=== PATIENT | female | born 1955 | race Two or more races ===

== ENCOUNTER 2020-05-12 21:38 | Inpatient (IN) | payer MEDICARE, MEDICAID ==
[~2020-05-12] VITALS: Ht 172.7 cm; Wt 63.5 kg
--- NOTE | 2020-05-12 21:53 | Emergency Room Report ---
History of Present Illness General Chief Complaint: palpitations Present Illness HPI Patient is a 65-year-old female presents for increased palpitations and chest discomfort. Onset approximately 30 minutes prior to arrival. Intermittent episodes in the past. Patient had recently had Pfizer coronavirus vaccine #2 approximately 1 week ago. Denies any exacerbating or alleviating factors. Reports having intermittent episodes similarly in the past. Had not been having any fever or cough. [place] that her heart was beating somewhat fast. Had taken baby aspirin approximately 2 hours ago. Allergies: Coded Allergies: No Known Allergies (Unverified , 05/12/20) Patient History Past Medical History: see triage record Reviewed Nursing Documentation: PMH: Agreed; PSxH: Agreed Review of Systems All Other Systems: negative except mentioned in HPI Physical Exam Sp02 EP Interpretation: reviewed, normal General Appearance: normal inspection, well appearing, no apparent distress, alert, GCS 15 Head: atraumatic ENT: normal ENT inspection, hearing grossly normal, normal voice Neck: normal inspection, full range of motion, supple, no bony tend Respiratory: normal inspection, lungs clear, normal breath sounds, no respiratory distress, no retraction, no wheezing Cardiovascular #1: no edema, tachycardia, irregularly irregular Gastrointestinal: normal inspection, normal bowel sounds, non tender, soft, no guarding, no hernia Genitourinary: no CVA tenderness Musculoskeletal: normal inspection, back normal, normal range of motion Neurologic: alert, motor strength/tone normal, 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 Total critical care time excluding procedures approximately 45 minutes. Medical Decision Making Diagnostic Impression: Primary Impression: Atrial fibrillation with rapid ventricular response ER Course Patient presents for increased chest discomfort and palpitations. Allergic reaction, myocardial infarction, cardiac arrhythmia among others. Because of complexity of patient's case laboratory tests and imaging studies were ordered.Initial EKG interpreted by me showed atrial fibrillation with rapid ventricular response rate of 143. Patient had taken baby aspirin prior to arrival 2 hours ago. Patient was given additional dose of aspirin as well as medications to assist with rate control. She was given digoxin as well as Cardizem with improvement in heart rate. Patient was also given oral potassium due to hypokalemia. Thyroid function tests were normal. Troponin was negative. Patient was reassessed and had no complaints of any chest discomfort or palpitations after rate control. Patient subsequently converted to sinus r hythm. Patient had intermittent episodes where she would begin having atrial fibrillation episodes again. Patient's case was discussed with Dr. Johnson who agreed to accept the patient for admission Labs Test 05/12/20 22:00 05/12/20 22:10 White Blood Count 6.7 K/UL (4.8-10.8) Red Blood Count 4.47 M/UL (4.20-5.40) Hemoglobin 13.6 G/DL (12.0-16.0) Hematocrit 40.5 % (37.0-47.0) Mean Corpuscular Volume 91 FL (80-99) Mean Corpuscular Hemoglobin 30.4 PG (27.0-31.0) Mean Corpuscular Hemoglobin Concent 33.5 G/DL (32.0-36.0) Red Cell Distribution Width 13.8 % (11.6-14.8) Platelet Count 175 K/UL (150-450) Mean Platelet Volume 7.2 FL (6.5-10.1) Neutrophils (%) (Auto) 45.9 % (45.0-75.0) Lymphocytes (%) (Auto) 47.6 % (20.0-45.0) Monocytes (%) (Auto) 4.6 % (1.0-10.0) Eosinophils (%) (Auto) 0.8 % (0.0-3.0) Basophils (%) (Auto) 1.1 % (0.0-2.0) Prothrombin Time 10.6 SEC (9.30-11.50) Prothromb Time International Ratio 1.0 (0.9-1.1) Activated Partial Thromboplast Time 24 SEC (23-33) D-Dimer 0.19 mg/L FEU (0.00-0.49) Sodium Level 145 MMOL/L (136-145) Potassium Level 3.0 MMOL/L (3.5-5.1) Chloride Level 106 MMOL/L (98-107) Carbon Dioxide Level 29 MMOL/L (21-32) Anion Gap 11 mmol/L (5-15) Blood Urea Nitrogen 15 mg/dL (7-18) Creatinine 0.8 MG/DL (0.55-1.30) Estimat Glomerular Filtration Rate > 60 mL/min (>60) Glucose Level 181 MG/DL (74-106) Calcium Level 9.6 MG/DL (8.5-10.1) Total Bilirubin 0.9 MG/DL (0.2-1.0) Aspartate Amino Transf (AST/SGOT) 21 U/L (15-37) Alanine Aminotransferase (ALT/SGPT) 23 U/L (12-78) Alkaline Phosphatase 66 U/L (46-116) Troponin I 0.000 ng/mL (0.000-0.056) Pro-B-Type Natriuretic Peptide 92 pg/mL (0-125) Total Protein 8.1 G/DL (6.4-8.2) Albumin 4.6 G/DL (3.4-5.0) Globulin 3.5 g/dL Albumin/Globulin Ratio 1.3 (1.0-2.7) Thyroid Stimulating Hormone (TSH) 2.625 uiU/mL (0.358-3.740) Urine Color Pale yellow Urine Appearance Clear Urine pH 7 (4.5-8.0) Urine Specific [place] 1.010 (1.005-1.035) Urine Protein Negative (NEGATIVE) Urine Glucose (UA) Negative (NEGATIVE) Urine Ketones Negative (NEGATIVE) Urine Blood 2+ (NEGATIVE) Urine Nitrite Negative (NEGATIVE) Urine Bilirubin Negative (NEGATIVE) Urine Urobilinogen Normal MG/DL (0.0-1.0) Urine Leukocyte Esterase Negative (NEGATIVE) Urine RBC 0-2 /HPF (0 - 2) Urine WBC 0 /HPF (0 - 2) Urine Squamous Epithelial Cells Few /LPF (NONE/OCC) Urine Bacteria None /HPF (NONE) EKG Diagnostic Results Rate: tachycardiac Rhythm: other - Atrial fibrillation ST Segments: no acute changes ASA given to the pt in ED: Yes Status: improved Disposition: ADMITTED INPATIENT Condition: Improved Haile Kathleen MD May 12, 2020 21:53
[2020-05-12] MEDS ORDERED: dilTIAZem HCl 25mg/5ml Inj IVP ONE (22:00)
[2020-05-12] MEDS ORDERED: Aspirin Baby 81mg ORAL ONE (22:00)
[2020-05-12] MEDS ORDERED: Digoxin 0.5mg/2ml Inj IVP ONE (22:00)
--- NOTE | 2020-05-12 22:00 | NUR ---
Pte came to ER ambulatory c/o chest pain , SOB and palpitations since this morning. New orders received from EDP and carried out. All procedures were explain to the patient . Patient verbalized understanding. Safety and comfort measures taken: bed set in low position, frequent rounds, call light within reach. Will continue monitoring the patient during the sift.
[2020-05-12 22:11] LABS: BASOPHILS % (AUTO) 1.1 % (0.0-2.0); EOSINOPHILS % (AUTO) 0.8 % (0.0-3.0); HEMATOCRIT 40.5 % (37.0-47.0); HEMOGLOBIN 13.6 G/DL (12.0-16.0); LYMPHOCYTES % (AUTO) 47.6 % (20.0-45.0); MEAN CORPUSCULAR VOLUME 91 FL (80-99); MONOCYTES % (AUTO) 4.6 % (1.0-10.0); NEUTROPHILS % (AUTO) 45.9 % (45.0-75.0); PLATELET COUNT 175 K/UL (150-450); RED BLOOD COUNT 4.47 M/UL (4.20-5.40); RED CELL DISTRIBUTION WIDTH 13.8 % (11.6-14.8); WHITE BLOOD COUNT 6.7 K/UL (4.8-10.8)
[2020-05-12 22:24] LABS: ANION GAP 11 mmol/L (5-15); BLOOD UREA NITROGEN 15 mg/dL (7-18); CALCIUM 9.6 MG/DL (8.5-10.1); CARBON DIOXIDE 29 MMOL/L (21-32); CHLORIDE 106 MMOL/L (98-107); CREATININE 0.8 MG/DL (0.55-1.30); SODIUM 145 MMOL/L (136-145)
[2020-05-12 22:29] LABS: APPEARANCE,URINE CLEAR; BILIRUBIN, URINE NEGATIVE (NEGATIVE); COLOR,URINE PALE YELLOW; GLUCOSE, URINE (UA) NEGATIVE (NEGATIVE); KETONES,URINE NEGATIVE (NEGATIVE); LEUKOCYTE ESTERASE ,URINE NEGATIVE (NEGATIVE); NITRITE,URINE NEGATIVE (NEGATIVE); PH,URINE 7 (4.5-8.0); PROTEIN,URINE NEGATIVE (NEGATIVE); UROBILINOGEN,URINE NORMAL MG/DL (0.0-1.0)
[2020-05-12 22:37] LABS: ALANINE AMINOTRANSFERASE 23 U/L (12-78); ALBUMIN 4.6 G/DL (3.4-5.0); ALBUMIN/GLOBULIN RATIO 1.3 (1.0-2.7); ALKALINE PHOSPHATASE 66 U/L (46-116); ASPARTATE AMINO TRANSFERASE 21 U/L (15-37); BILIRUBIN,TOTAL 0.9 MG/DL (0.2-1.0)
[2020-05-12 22:42] VITALS: BP 143/88
--- NOTE | 2020-05-12 22:44 | Diagnostic Imaging Report ---
EXAM: XR Chest, 1 View CLINICAL HISTORY: CP TECHNIQUE: Frontal view of the chest. COMPARISON: No previous study. FINDINGS: Lungs: The lungs are well aerated. Patchy airspace disease at the lung bases raising concern for atypical pneumonias. Pleural space: Unremarkable. No pneumothorax. Heart: Mild cardiomegaly. Mediastinum: Unremarkable. Bones/joints: Osteopenia. IMPRESSION: 1. Patchy airspace disease at lung bases raising concern for possible atypical pneumonia. 2. Cardiomegaly. 3. No pleural effusions. 4. Osteopenia.
[2020-05-12] MEDS ORDERED: Milk of Magnesia 30ml Ud ORAL PRN (23:00)
[2020-05-12] MEDS ORDERED: dilTIAZem HCl 25mg/5ml Inj IVP PRN (23:00)
[2020-05-12] MEDS ORDERED: Acetaminophen 500mg (ES) tab ORAL PRN (23:00)
[2020-05-13] VITALS (7 sets, daily range): BP systolic 122–142; BP diastolic 76–93
[2020-05-13] MEDS ORDERED: Azithromycin 250mg tab ORAL ONE
[2020-05-13] MEDS ORDERED: cefTRIAXone 1 GM in D5W 55 ML IVPB SCH ×2
[2020-05-13] MEDS: dilTIAZem HCl 30mg tab ORAL SCH ×4 (00:51→18:12)
--- NOTE | 2020-05-13 00:55 | NUR ---
Pte was admitted to the floor CCU unit report given to Jody NARANJO . All belongs were packaged and sent them with the pte. Patient left ER in stable condition accompained of oscar NARANJO.
--- NOTE | 2020-05-13 01:00 | NUR ---
NURSE NOTES: Report received from JOSE A Baeza. Pt MARCO parham direct to SDU room 239-2. Upon assessment pt is A/Ox3 - not oriented to date. PERRLA. Vitals WNL. Saturating 98% on room air. 5-lead EKG shows NSR. s1s2 heart sounds auscultated. Rhonchi heard on bilateral lobes. Active bowel sounds auscultated on RLQ of abdomen. Bed kept in lowest and locked position. Side rails up x2. Call light within reach. Will monitor.
--- NOTE | 2020-05-13 01:29 | NUR ---
NURSE NOTES: Pt observed ambulating to restroom. Stable gait observed. Observed with dark purple bruise on upper left side of back. Will have disease education specialist d/w pt in AM in regards to bruising since preferred language is Arabic. No distress noted.
--- NOTE | 2020-05-13 04:00 | NUR ---
NURSE NOTES: EKG taken as ordered which shows NSR. No cardiopulmonary distress noted. Saturating 99% on room air.
[2020-05-13 05:25] LABS: ANION GAP 7 mmol/L (5-15); BLOOD UREA NITROGEN 14 mg/dL (7-18); CARBON DIOXIDE 30 MMOL/L (21-32); CHLORIDE 109 MMOL/L (98-107); CREATININE 0.6 MG/DL (0.55-1.30); POTASSIUM 3.6 MMOL/L (3.5-5.1); SODIUM 146 MMOL/L (136-145)
[2020-05-13 05:37] LABS: ALANINE AMINOTRANSFERASE 25 U/L (12-78); ALBUMIN 4.1 G/DL (3.4-5.0); ALBUMIN/GLOBULIN RATIO 1.3 (1.0-2.7); ALKALINE PHOSPHATASE 59 U/L (46-116); ASPARTATE AMINO TRANSFERASE 19 U/L (15-37); BILIRUBIN,TOTAL 0.7 MG/DL (0.2-1.0)
--- NOTE | 2020-05-13 06:47 | NUR ---
NURSE HAND-OFF: Important Events on Shift: No change Patient Status: Stable Diet: Cardiac Pending Orders: Pending Results/Labs: Pending MD notification: Latest Vital Signs: Temperature 97.8 , Pulse 73 , B/P 124 /76 , Respiratory Rate 16 , O2 SAT 98 , Nasal Cannula, O2 Flow Rate . Vital Sign Comment: WNL Latest Collazo Fall Score: 20 Fall Risk: Low Risk Safety Measures: Call light Within Reach, Bed Alarm Zone 1, Side Rails Side Rails x2, Bed position Low and Locked. Fall Precautions: Report given to JOSE A Collado.
--- NOTE | 2020-05-13 07:00 | NUR ---
NURSE NOTES: Received report from JOSE A Haile. pt in bed awake and orientedx4, danish speaking. IV site in left AC 20G SL and in RAC 20G running NS @75ml/hr patent and intact. Call light within easy reach. Side railsx 2 up for safety. Sinus rhythm on director strategy. Bed in lowest position. Will continue plan of care.
--- NOTE | 2020-05-13 07:25 | NUR ---
NURSE NOTES: Dr. Johnson present at the bedside. May d/c Eliquis if pt stays SR and stable. Will continue plan of care.
--- NOTE | 2020-05-13 08:14 | History and Physical Report ---
DATE OF ADMISSION: 05/12/2020 CHIEF COMPLAINT: Palpitations. HISTORY OF PRESENT ILLNESS: Patient is a 65-year-old female. She has no past medical history presented with complaints of several days of palpitations. On evaluation in the emergency room, she was in AFib with rapid ventricular response. She received a dose of Cardizem with some improvement. She is now admitted to a monitored bed for further evaluation. She denies any excess caffeine use. Denies any drinking. No chest pain. No shortness of breath or cough. She received her second dose of her COVID vaccine on 04/27/2020. PAST MEDICAL HISTORY: None. PAST SURGICAL HISTORY: None. CURRENT MEDICATIONS: None. FAMILY HISTORY: None. SOCIAL HISTORY: Negative for tobacco, ethanol, or drugs. REVIEW OF SYSTEMS: GENERAL: No fevers or chills. HEENT: No headaches or visual changes. CARDIOPULMONARY: No chest pain or shortness of breath. Positive palpitations. GASTROINTESTINAL: No nausea or vomiting. GENITOURINARY: No urgency or frequency. MUSCULOSKELETAL: No joint pain or swelling. NEUROLOGIC: No evidence of seizures. PHYSICAL EXAMINATION: VITAL SIGNS: Temperature 98.2, pulse 70, respirations 16, blood pressure 122/76. GENERAL: Patient is well developed, in no apparent distress. HEART: Regular rate and rhythm. LUNGS: Clear. ABDOMEN: Soft, nontender, nondistended. EXTREMITIES: Without clubbing, cyanosis, or edema. LABORATORY AND DIAGNOSTIC DATA: EKG showed AFib with RVR. White count was 6, hemoglobin 13, platelets 175. Sodium 145, potassium is 3. Troponin was 0.0 and then 0.006. TSH was normal. UA was clear. Chest x-ray showed patchy airspace disease at the bases, possible pneumonia. PLAN: IV antibiotics. Check for COVID PCR. ID, Cardiology evaluations to be obtained. Patient will be started on Eliquis. We will check an echo. Further plan of care will be determined after discussion with consulting physicians. William Dumas JOB#: [id number] CC:
[2020-05-13] MEDS ORDERED: Vitamin D 400 units TAB ORAL SCH (09:00)
[2020-05-13] MEDS ORDERED: Ascorbic Acid 500mg tab ORAL SCH (09:00)
--- NOTE | 2020-05-13 09:00 | NUR ---
NURSE NOTES: Pt went to CT scan via wheelchair with monitor and RN's supervision.
--- NOTE | 2020-05-13 09:20 | NUR ---
NURSE NOTES: Pt came back form CT scan. Pt remains stable.
[2020-05-13] MEDS: Eliquis 2.5mg tablet ORAL SCH ×2 (09:23→18:13)
--- NOTE | 2020-05-13 10:20 | NUR ---
NURSE NOTES: Covid 19 PCR swab done and sent to the lab
--- NOTE | 2020-05-13 14:20 | NUR ---
INSURANCE [employer]INICALS FAXED TO [facility] #[phone] fax# [phone]
--- NOTE | 2020-05-13 14:30 | NUR ---
NURSE NOTES: Pt asked to discharge home. Dr. Johnson paged and no reply received
--- NOTE | 2020-05-13 15:53 | Diagnostic Imaging Report ---
Indication: Chest pain, shortness of breath Technique: Noncontrast CT of the chest utilizing automated exposure control. Axial, sagittal and coronal reformats presented. CT dose: Total DLP 138.8 mGycm; CTDI vol 3.4 mGy Comparison: No prior CT available for comparison. Correlation made to concurrent chest radiograph Findings: Please note that evaluation of the vasculature and mediastinal structures is limited without intravenous contrast. Within these limitations the following observations are made: There is focal bronchiectasis and adjacent airspace opacities in the anterior middle lobe and lingula. Additional foci of bronchiectasis with bronchial wall thickening noted in the superior middle lobe. There is some clustered solid nodules in this region as well (for example axial image #36). Some subpleural nodules are noted bilaterally, largest in the periphery of the left lower lobe measuring approximately 7 mm diameter (axial image #33) is no pleural effusion or pneumothorax. There is somewhat nodular scarring in the right apex (axial image #12). Heart is within normal limits. No pericardial effusion. There is enlarged mediastinal and left axillary lymphadenopathy. The thoracic aorta is normal in caliber with mild atherosclerotic calcification. Main pulmonary artery appears normal in caliber. Imaged portions of abdominal aorta normal in caliber. Bones are demineralized. There is likely interbody hemangioma in T5. No acute fractures identified. There is a 13 mm nodule in the right lobe of the thyroid. IMPRESSION: Limited exam without intravenous contrast. Within these limitations: * Bronchiectasis and airspace opacities noted within the anterior mid lobe and lingula. Findings are likely sequela of infection, for example atypical mycobacterial infection. Additional etiologies not excluded. Correlation with clinical history recommended. Comparison with the prior exam would be helpful. * Clustered subcentimeter nodules in the superior middle lobe as well as scattered subpleural nodules. These may be postinfectious or postinflammatory in etiology. Neoplasm/malignancy not excluded and short-term interval follow-up (less than 3 months) recommended to assess stability. * Focus of likely nodular scarring in the right apex. Attention on short-term interval follow-up recommended. * 13 mm low-attenuation nodule in the right lobe of the thyroid. Follow-up thyroid ultrasound recommended. The CT scanner at [facility] is accredited by the [employer] and the scans are performed using protocols designed to limit radiation exposure to as low as reasonably achievable to attain images of sufficient resolution adequate for diagnostic evaluation.
--- NOTE | 2020-05-13 19:25 | NUR ---
NURSE HAND-OFF REPORT: Important Events on Shift: wants to discharge home Patient Status: stable Diet: cardiac Pending Orders: covid 19 PCR Pending Results/Labs:covid 19 PCR Pending MD notification: Chest CT Latest Vital Signs: Temperature 97.5 , Pulse 78 , B/P 141 /87 , Respiratory Rate 16 , O2 SAT 98 , Nasal Cannula, O2 Flow Rate . Vital Sign Comment: stable EKG Rhythm: Sinus Rhythm Rhythm change?: N MD Notified?: N - MD Response: n/a Latest Collazo Fall Score: 20 Fall Risk: Low Risk Safety Measures: Call light Within Reach, Bed Alarm Zone 1, Side Rails Side Rails x2, Bed position Low and Locked. Fall Precautions: Report given to JOSE A Levy.
--- NOTE | 2020-05-13 19:29 | Consultation ---
DATE OF CONSULTATION: 05/13/2020 PULMONARY CONSULTATION CONSULTING PHYSICIAN: Carroll Augustin MD REASON FOR CONSULTATION: Bronchiectasis/pneumonia. HISTORY OF PRESENT ILLNESS: This is a 65-year-old female, brought in for evaluation. The patient with no prior past medical history. The patient with complaints of palpitation. In the emergency room, patient was noted to have atrial fibrillation with rapid ventricular response. Also CT of the chest was done showing significant bronchiectatic changes with possible pneumonia. Patient has no shortness of breath or cough at this time. The patient has received the COVID vaccine. No fever or chills reported. No hemoptysis at present. PAST MEDICAL HISTORY: Negative. PAST SURGICAL HISTORY: Negative. MEDICATIONS: None. FAMILY HISTORY: Noncontributory. SOCIAL HISTORY: Nonsmoker and nondrinker. Patient is of descent. REVIEW OF SYSTEMS: All 10 points reviewed and otherwise negative. PHYSICAL EXAMINATION: GENERAL: A well-developed female, in no apparent distress. LUNGS: Notable for moderate breath sounds. Some crackles noted at the bases. CARDIAC: S1, S2. Regular rate and rhythm. ABDOMEN: Soft, nontender. EXTREMITIES: No cyanosis, clubbing, or edema. NEUROLOGIC: Grossly nonfocal. VITAL SIGNS: The patient's most recent vitals, blood pressure normal 122/76, pulse rate 70, respiratory rate 16, temperature 98.2. LABORATORY DATA: Reviewed. EKG with atrial fibrillation with RVR. Sodium 145. Troponin negative. TSH normal. Chest x-ray with patchy airspace disease. CT chest with bronchiectatic changes. IMPRESSION: 1. Atrial fibrillation, paroxysmal. 2. Bronchiectasis with airspace opacities, possibly post pneumonic. 3. Subcentimeter nodules superior and middle lobe and noted thyroid nodule. RECOMMENDATION: Empiric antibiotics. ID to see. We will need to check followup of CAT scan, especially with noted nodules. Anticoagulation. Heart rate control. Cardiology to see. Monitor clinically. Obtain sputum and await COVID results. Patient's findings are likely mostly chronic with acute superimposed pneumonia. Carroll Augustin M.D. DR: SALOME JOB#: [id number] CC: LEEANN
--- NOTE | 2020-05-13 19:30 | NUR ---
NURSE NOTES: Dr. Kothari paged for the time of arrival to see the patient, no respond at this time. Left a message
--- NOTE | 2020-05-13 19:46 | NUR ---
NURSE NOTES: Received report from Tobias Celeste Rn. Pt is awake, A/Ox4, French speaking. No signs of distress noted. on RA spo2 98%, respirations even and unlabored. lunchroom monitor shows SR. Pt is ambulatory. R AC 18g is intact, running NS 75cc/hr. On covid precautions due to PUI status. Skin is intact. HOB elevated, call light within reach, bed alarmed, locked, and in lowest position. Will continue plan of care. Will continue to monitor.
--- NOTE | 2020-05-13 19:50 | NUR ---
NURSE NOTES: Called Dr. Johnson regarding pt's pending AMA status due to inability to see Dr. Kothari. Was told that Dr. kothari would be in the unit, but unsure about what time. This information was relayed to the pt and pt was educated on the dangers of AMA. Rn spoke with the daughter and relayed the information to her. Daughter stated that she understood everything but still wanted her mother to AMA.
--- NOTE | 2020-05-13 20:10 | NUR ---
NURSE NOTES: Unable to contact Dr. Kothari. Pt stated in mohawk that if she does not see Dr. kothari by 10pm, she will be leaving AMA. RN notified pt that Dr. Kothari usually comes later in the evening, and to be patient. The patient, although calm, states that she cannot wait longer than 10pm.
--- NOTE | 2020-05-13 20:30 | NUR ---
NURSE NOTES: Pt on facetime with daughter and daughter and pt agreed that AMA without waiting for 10pm. RN attempted to convince pt to stay again stating that Dr. Kothari will be in tonight and that leaving without clearance could be dangerous. Pt still stated that she will leave and will sign the paper. Daughter will be picking her up.
--- NOTE | 2020-05-13 20:56 | NUR ---
NURSE NOTES: IV, telemetry box,a nd wrist band removed. Pt able to dress herself. Inventory list signed by pt, ama form signed by pt. Daughter arrived at 2044 to the entrance of the hospital. RN wheeled pt down and pt was able to stand up and get in the care.
[2020-05-13] MEDS ORDERED: Azithromycin 250mg tab ORAL SCH (21:00)
--- NOTE | 2020-05-14 12:15 | NUR ---
INSURANCE [employer]INIC[employer] FAXED TO [facility] #[phone] fax# [phone]
--- NOTE | 2020-05-14 14:47 | Discharge Summary ---
Discharge Summary Discharge Summary _ Date of admission: 05/12/2020 Patient left AGAINST MEDICAL ADVICE on 05/13/2020 History of Present Illness and Brief Hospital Course Ms. Marcus is a 65-year-old female with no reported past medical history who presented to the ED for increased palpitations and chest discomfort x30 minutes. Initial EKG showed atrial fibrillation with RVR at a rate of 143. Patient had taken a baby aspirin prior to arrival at that point in time. Patient was given additional dose of aspirin as well as medications to assist with rate control. She was given digoxin as well as Cardizem with improvement in heart rate. Patient was also given oral potassium due to hypokalemia. TSH was normal. Troponin was negative. Patient subsequently converted to sinus rhythm. Patient was admitted to the hospital for further workup. Chest x-ray showed patchy airspace disease at lung bases concerning for possible atypical pneumonia. Patient was started on empiric antibiotics. Chest CT showed bronchiectasis and airspace opacities, clustered subcentimeter nodules in the superior middle lobe as well as scattered subpleural nodules, focus of likely nodular scarring in the right apex, and 13 mm low-tension nodule in the right lobe of the thyroid. A follow-up thyroid ultrasound was recommended. Patient tested negative for COVID-19 on rapid antigen test. Patient and her daughter decided to have the patient leave AGAINST MEDICAL ADVICE despite strong discouragement. Patient had not been seen by a sapphire stylus grinder. Patient signed the AMA form and was picked up by her daughter. Consultants: Pulmonology Dr. Augustin Final diagnoses Osteopenia Paroxysmal atrial fibrillation Bronchiectasis with airspace opacities, possibly post pneumatic Subcentimeter nodule superior and middle lobe Thyroid nodule Hypokalemia I have been assigned to dictate discharge summary for this account. I was not involved in the patient's management Adis Simeon May 14, 2020 14:47
== END 2020-05-13 21:00 | disposition left against medical advice (07) | DRG 310 ==
LOC: EMR 22:00 → 2W 22:33 → EDBEDREQ 23:14
DX: I48.0 Paroxysmal atrial fibrillation (principal); I11.9 Hypertensive heart disease without heart failure; M85.80 Other specified disorders of bone density and structure, unspecified site; J47.9 Bronchiectasis, uncomplicated; E04.1 Nontoxic single thyroid nodule; E87.6 Hypokalemia; R91.8 Other nonspecific abnormal finding of lung field
CPT/HCPCS: 36415; 71045; 71250; 80053; 81003; 83880; 84443; 84484; 85025; 85379; 85610; 85730; 93005; 93306; 96374; 96375; 99291; J8499